=== PATIENT | male | born 1985 | race Two or more races ===

== ENCOUNTER 2018-12-23 11:43 | Observation (INO) | payer OTHER ==
--- NOTE | 2018-12-23 12:51 | EKG REPORT ---
SEVERITY:- BORDERLINE ECG - SINUS RHYTHM NONSPECIFIC ST-T CHANGES- INFERIOR LEADS : Confirmed by: Chuy Clemens MD 23-Dec-2018 12:50:12
[2018-12-23 13:11] LABS: ABSOLUTE EOSINOPHILS # (AUTO) 0.2 10^3/uL (0.0-0.6); ABSOLUTE LYMPHOCYTES (AUTO) 3.1 10^3/uL (0.5-4.7); ABSOLUTE MONOCYTES (AUTO) 0.4 10^3/uL (0.1-1.4); ABSOLUTE NEUT (AUTO) 4.3 10^3/uL (1.7-8.2); BASOPHILS % (AUTO) 0.3 % (0-2); EOSINOPHILS % (AUTO) 2.7 % (0-6); HEMATOCRIT 43.8 % (37.9-51.0); LYMPHOCYTES % (AUTO) 38.6 % (13-45); MEAN CORPUSCULAR VOLUME 80 fl (80-97); MONOCYTES % (AUTO) 5.5 % (3-13); PLATELET COUNT 278 10^3/uL (150-450); RED BLOOD COUNT 5.46 10^6/uL (4.35-5.55); RED CELL DISTRIBUTION WIDTH 14.7 % (11.5-14.0); SEGMENTED NEUTROPHILS % (AUTO) 52.9 % (42-78); TOTAL CELLS COUNTED % (AUTO) 100 %; WHITE BLOOD COUNT 8.1 10^3/uL (4.0-10.5)
[2018-12-23 13:25] LABS: ALANINE AMINOTRANSFERASE 31 U/L (21-72); ALBUMIN 4.2 g/dL (3.5-5.0); ALKALINE PHOSPHATASE 112 U/L (38-126); ANION GAP 13 (5-19); ASPARTATE AMINO TRANSFERASE 26 U/L (17-59); BILIRUBIN,DIRECT 0.4 mg/dL (0.0-0.4); BILIRUBIN,TOTAL 0.8 mg/dL (0.2-1.3); BLOOD UREA NITROGEN 10 mg/dL (7-20); CALCIUM 9.1 mg/dL (8.4-10.2); CARBON DIOXIDE 20 mmol/L (22-30); CHLORIDE 105 mmol/L (98-107); GLUCOSE 128 mg/dL (75-110); POTASSIUM 4.4 mmol/L (3.6-5.0); SODIUM 137.5 mmol/L (137-145); TOTAL PROTEIN 7.8 g/dL (6.3-8.2)
[2018-12-23 13:32] LABS: HEMOGLOBIN 14.7 g/dL (13.5-17.0); MEAN CORPUSCULAR HEMOGLOBIN 26.9 pg (27.0-33.4)
[2018-12-23 13:33] LABS: MEAN CORPUSCULAR HGB CONC 33.6 g/dL (32.0-36.0)
--- NOTE | 2018-12-23 14:29 | RADIOLOGY REPORT (SQ) ---
EXAM DESCRIPTION: CHEST 2 VIEWS COMPLETED DATE/TIME: 12/23/2018 2:13 pm REASON FOR STUDY: chest pain COMPARISON: None. EXAM PARAMETERS: NUMBER OF VIEWS: two views TECHNIQUE: Digital Frontal and Lateral radiographic views of the chest acquired. RADIATION DOSE: NA LIMITATIONS: none FINDINGS: LUNGS AND PLEURA: No opacities, masses or pneumothorax. No pleural effusion. MEDIASTINUM AND HILAR STRUCTURES: No masses or contour abnormalities. HEART AND VASCULAR STRUCTURES: Heart normal size. No evidence for failure. BONES: No acute findings. HARDWARE: None in the chest. OTHER: No other significant finding. IMPRESSION: NO ACUTE RADIOGRAPHIC FINDING IN THE CHEST. TECHNICAL DOCUMENTATION: JOB ID: [id number] [employer]- All Rights Reserved Reading location - IP/workstation name: [email or web address]
--- NOTE | 2018-12-23 14:49 | RADIOLOGY REPORT (SQ) ---
EXAM DESCRIPTION: CTA CHEST COMPLETED DATE/TIME: 12/23/2018 2:35 pm REASON FOR STUDY: chest pain COMPARISON: Two-view chest 12/23/2018 TECHNIQUE: CT scan of the chest performed using helical scanning technique with dynamic intravenous contrast injection. Images reviewed with lung, soft tissue and bone windows. Reconstructed coronal and sagittal MPR images reviewed. Additional 3 dimensional post-processing performed to develop Maximal Intensity Projection images ([place] P). All images stored on PACS. All CT scanners at this facility use dose modulation, iterative reconstruction, and/or weight based d osing when appropriate to reduce radiation dose to as low as reasonably achievable (ALARA). [facility]: Dose Right [facility]: CareDose [facility]: Dose Right [facility]: Teradose 4D [facility]: JoinTV CONTRAST TYPE AND DOSE: contrast/concentration: Isovue mg/ml; Total Contrast Delivered: 144.0 ml; T otal Saline Delivered: 190.0 ml Contrast bolus optimized for the thoracic aorta, suboptimal opacification of the pulmonary arteries. Patient was scanned twice. RENAL FUNCTION: Creatinine 0.6 RADIATION DOSE: CT Rad equipment meets quality standard of care and radiation dose reduction techniq ues were employed. CTDIvol: 1.9 - 15.2 mGy. DLP: 1127 mGy-cm. . LIMITATIONS: Suboptimal contrast bolus. Patient was scanned twice. Manual and automatic technique were utilized. FINDINGS: LUNGS AND PLEURA: No masses, infiltrates, or pneumothorax. No pleural effusions or pleura l calcifications. AORTA AND GREAT VESSELS: No aneurysm. No thoracic aortic dissection. Single surgical clip along the ductus arteriosus region HEART: No pericardial effusion. No significant coronary artery calcifications. PULMONARY ARTERIES: No emboli visualized in the main pulmonary arteries or the proximal segmental bra nches. HILAR AND MEDIASTINAL STRUCTURES: No identified masses or abnormal nodes. Minimal thymic tissue in t he anterior mediastinum on axial images 34-40 of doubtful clinical significance. HARDWARE: None in the chest. UPPER ABDOMEN: Fatty liver THYROID AND OTHER SOFT TISSUES: No masses. No adenopathy. BONES: Old left thoracotomy defect along the posterior 5th rib. . 3D MIPS: Confirm above findings. OTHER: No other significant finding. IMPRESSION: Limited study, no gross evidence of acute pulmonary emboli. Ductus arteriosus clip in the mediastinum with old left posterior 5th rib defect from surger y COMMENT: Quality ID # [id number]: Final reports with documentation of one or more dose reduction techniques (e.g., Automated exposure control, adjustment of the mA and/or kV according to patient size, use of iterative reconstruction technique) TECHNICAL DOCUMENTATION: JOB ID: [id number] [employer]- All Rights Reserved Reading location - IP/workstation name: [email or web address]
[2018-12-23 15:05] LABS: CREATINE KINASE MB 0.28 ng/mL (<4.55)
[2018-12-23 15:06] LABS: TROPONIN I < 0.012 ng/mL
--- NOTE | 2018-12-23 15:30 | RADIOLOGY REPORT (SQ) ---
EXAM DESCRIPTION: MRI CERVICAL SPINE WITHOUT COMPLETED DATE/TIME: 12/23/2018 3:18 pm REASON FOR STUDY: cervical radiculopathy COMPARISON: None. TECHNIQUE: Sagittal and Axial imaging includes T1, T2, STIR and gradient echo sequences. LIMITATIONS: Mild motion artifact FINDINGS: ALIGNMENT: Normal. VERTEBRAE: Intact. BONE MARROW: Normal. No marrow replacement or reactive changes. DISCS: Diffuse decreased T2 weighted intervertebral disc signal throughout the cervical spine HARDWARE: None in the spine. CORD AND BASE OF BRAIN: Normal in size and signal intensity. SOFT TISSUES: No soft tissue masses. C1-C2: No significant spinal stenosis. C2-C3: No significant spinal stenosis or exit foraminal stenosis. C3-C4: No significant spinal stenosis or exit foraminal stenosis. C4-C5: No significant spinal stenosis or exit foraminal stenosis. C5-C6: Minimal posterior disc bulging. No significant spinal stenosis or exit foraminal stenosis. C6-C7: Small central posterior disc bulge partially effaces the ventral thecal sac and abuts the vent ral cord without cord flattening or abnormal intrinsic cord signal. No significant central or forami nal stenosis. C7-T1: No significant spinal stenosis or exit foraminal stenosis. UPPER THORACIC: Incompletely imaged. No significant spinal stenosis or exit foraminal stenosis. OTHER: No other significant finding. IMPRESSION: No significant central or foraminal stenosis TECHNICAL DOCUMENTATION: JOB ID: [id number]- All Rights Reserved Reading location - IP/workstation name: [email or web address]
[2018-12-23] MEDS ORDERED: ALBUTEROL SULFATE HFA (90 MCG/PUFF) 200 PUFF/8.5 GM MDI IH PRN (17:48)
[2018-12-23] MEDS ORDERED: TRAMADOL HCL 50 MG TABLET PO PRN (17:48)
[2018-12-23] MEDS ORDERED: (PENDING PHARMACY ID) (Empagliflozin [Jardiance] 25 MG) PO SCH (18:00)
[2018-12-23] MEDS ORDERED: (PENDING PHARMACY ID) (Fluticasone/Salmeterol 1 PUFF) IH SCH (18:00)
--- NOTE | 2018-12-23 18:23 | PDOC H&P ---
History of Present Illness Admission Date/PCP: 12/23/18 11:43 History of Present Illness: KEYONNA HINOJOSA is a 33 year old male, he has type II diabetes mellitus, hyperlipidemia, he came to the office for evaluation of chest pain, he said the chest pain involved both the right and the left side, he described the chest pain as pressure-like. He also describes pain in his neck with radicular symptoms, in the office a 12-lead EKG was done, it was sinus rhythm, there was nonspecific T wave changes in inferior leads, because of his history of diabetes mellitus type 2 and also hypertriglyceridemia with abnormal EKG I felt patient needed to be admitted for observation to rule out ischemic heart disease. CTA chest was done, it was negative for acute pulmonary embolism, MRI of the neck was done because of cervical radiculopathy,it demonstrated small central posterior disc bulge partially effaces the ventral thecal sac and abuts the ventral cord without cord flattening or abnormal intrinsic cord signal. No significant central or foraminal stenosis was found Past Medical History Cardiac Medical History: Reports: Hypertension Endocrine Medical History: Reports: Diabetes Mellitus Type 2 Musculoskeltal Medical History: Reports: Arthritis Social History Smoking Status: Never Smoker Drugs: None - Advance Directive Resuscitation Status: Full Code Family History Parental Family History Reviewed: Yes Children Family History Reviewed: Yes Sibling(s) Family History Reviewed.: Yes Medication/Allergy Home Medications: Albuterol Sulfate [Proair HFA Inhalation Aerosol 8.5 gm MDI] 2 puff IH Q4HP PRN 12/23/18 Atorvastatin Calcium [Lipitor 40 mg Tablet] 40 mg PO QHS 12/23/18 Carboxymethylcellulose Sodium [Refresh Plus 0.5% Oph Soln 0.4 ml Droperette] 1 drop OU TID 12/23/18 Cetirizine HCl [Zyrtec 10 mg Tablet] 10 mg PO DAILY 12/23/18 Empagliflozin [Jardiance] 25 mg PO DAILY 12/23/18 Fluticasone/Salmeterol [Advair 500-50 Diskus 14 Dose/Diskus] 1 puff IH DAILY 12/23/18 Gabapentin [Neurontin 300 mg Capsule] 300 mg PO Q8 12/23/18 Lisinopril [Zestril] 10 mg PO DAILY 12/23/18 Metformin HCl [Glucophage XR 500 mg Tablet] 500 mg PO BID 12/23/18 Olopatadine HCl [Patanol 0.1% Oph Soln 5 ml] 1 drop OU DAILY 12/23/18 [place]-3 Acid Ethyl Esters [Lovaza 1 gm Capsule] 1 cap PO DAILY 12/23/18 Sitagliptin Phosphate [Januvia] 100 mg PO DAILY 12/23/18 Tramadol HCl [Ultram 50 mg Tablet] 50 mg PO Q6HP PRN 12/23/18 Allergies/Adverse Reactions: grass pollen Allergy (Mild, Verified 12/23/18 19:33) Stuffy Nose house dust Allergy (Mild, Verified 12/23/18 19:33) Stuffy Nose tree and shrub pollen Allergy (Mild, Verified 12/23/18 19:33) Stuffy Nose Review of Systems Constitutional: ABSENT: chills, fever(s), headache(s), weight gain, weight loss Eyes: ABSENT: visual disturbances Ears: ABSENT: hearing changes Cardiovascular: PRESENT: chest pain. ABSENT: dyspnea on exertion, edema, orthropnea, palpitations Respiratory: ABSENT: cough, hemoptysis Gastrointestinal: ABSENT: abdominal pain, constipation, diarrhea, hematemesis, hematochezia, nausea, vomiting Genitourinary: ABSENT: dysuria, hematuria Musculoskeletal: ABSENT: joint swelling Integumentary: ABSENT: rash, wounds Neurological: ABSENT: abnormal gait, abnormal speech, confusion, dizziness, f ocal weakness, syncope Psychiatric: ABSENT: anxiety, depression, homidical ideation, suicidal ideation Endocrine: ABSENT: cold intolerance, heat intolerance, menstrual abnormalities, polydipsia, polyuria Hematologic/Lymphatic: ABSENT: easy bleeding, easy bruising, lymphadenopathy Physical Exam Vital Signs: Temp Pulse Resp BP Pulse Ox 98.1 F 101 H 16 117/83 94 12/23/18 16:00 12/23/18 16:00 12/23/18 16:00 12/23/18 16:00 12/23/18 16:00 Intake & Output 12/22/18 12/23/18 12/24/18 06:59 06:59 06:59 Intake Total 400 Balance 400 General appearance: PRESENT: no acute distress, well-developed, well-nourished Head exam: PRESENT: atraumatic, normocephalic Eye exam: PRESENT: conjunctiva pink, EOMI, PERRLA Ear exam: PRESENT: normal external ear exam Mouth exam: PRESENT: moist, tongue midline Neck exam: PRESENT: full ROM Respiratory exam: PRESENT: clear to auscultation vik Cardiovascular exam: PRESENT: RRR, +S1, +S2 Pulses: PRESENT: normal dorsalis pedis pul, +2 pedal pulses bilateral Vascular exam: PRESENT: normal capillary refill GI/Abdominal exam: PRESENT: normal bowel sounds, soft Rectal exam: PRESENT: deferred Neurological exam: PRESENT: alert, awake, oriented to person, oriented to place, oriented to time, oriented to situation, CN II-XII grossly intact Psychiatric exam: PRESENT: appropriate affect, normal mood Skin exam: PRESENT: dry, intact, warm. ABSENT: cyanosis, rash Results Laboratory Results: 12/23/18 12:51 12/23/18 12:51 12/23/18 12/23/18 12:51 12:51 WBC 8.1 RBC 5.46 Hgb 14.7 Hct 43.8 MCV 80 MCH 26.9 L MCHC 33.6 RDW 14.7 H Plt Count 278 Seg Neutrophils % 52.9 Lymphocytes % 38.6 Monocytes % 5.5 Eosinophils % 2.7 Basophils % 0.3 Absolute Neutrophils 4.3 Absolute Lymphocytes 3.1 Absolute Monocytes 0.4 Absolute Eosinophils 0.2 Absolute Basophils 0.0 Sodium 137.5 Potassium 4.4 Chloride 105 Carbon Dioxide 20 L Anion Gap 13 BUN 10 Creatinine 0.58 Est GFR ( Amer) > 60 Est GFR (Non-Af Amer) > 60 Glucose 128 H Calcium 9.1 Total Bilirubin 0.8 AST 26 ALT 31 Alkaline Phosphatase 112 Total Protein 7.8 Albumin 4.2 12/23/18 12/23/18 12:51 12:51 Creatine Kinase 64 CK-MB (CK-2) 0.28 Troponin I < 0.012 Impressions: Cervical Spine MRI 12/23/18 00:00 IMPRESSION: No significant central or foraminal stenosis Chest X-Ray 12/23/18 00:00 IMPRESSION: NO ACUTE RADIOGRAPHIC FINDING IN THE CHEST. Chest/Abdomen CTA 12/23/18 00:00 IMPRESSION: Limited study, no gross evidence of acute pulmonary emboli. Ductus arteriosus clip in the mediastinum with old left posterior 5th rib defect from surgery Assessment & Plan - Diagnosis (1) Chest pain Qualifiers: Chest pain type: other chest pain Qualified Code(s): R07.89 - Other chest pain; R07.8 - Other chest pain Is this a current diagnosis for this admission?: Yes Plan: The chest pain is atypical in character but because he has multiple risk factors for ischemic heart disease, he was admitted for observation and evaluation to rule out ischemic heart disease (2) T2DM (type 2 diabetes mellitus) Qualifiers: Diabetes mellitus intermediate insulin use: without intermediate use Diabetes mellitus complication status: without complication Qualified Code(s): E11.9 - Type 2 diabetes mellitus without complications Is this a current diagnosis for this admission?: Yes
--- NOTE | 2018-12-23 19:47 | XCELERA REPORT ---
[address] [address] Transthoracic Echocardiogram Report Name: KEYONNA HINOJOSA Age: 33 yrs Gender: Male : 1985 Patient Status: Inpatient Patient Location: [facility]^A Study Date: 12/23/2018 01:16 PM Height: 71 in Weight: 246 lb BSA: 2.3 m2 Reason For Study: chest pain Ordering Physician: MARK WILLETT Performed By: Karla Madden Interpretation Summary Study quality fair with some suboptimal images. Lack of contrast opacification limits evaluation for intracardiac thrombus/mass. LVEF appears normal at 60-65%. The right ventricle is normal in size and function. The transmitral spectral Doppler flow pattern is normal for age A bicuspid aortic valve cannot be excluded. Doppler data provided does not suggest any significant stenosis. There is no pericardial effusion. The inferior vena cava was not well visualized The aortic root is normal size. MMode/2D Measurements & Calculations RVDd: 3.6 cm LVIDd: 5.0 cm FS: 40.1 % Ao root diam: IVSd: 0.82 cm LVIDs: 3.0 cm EDV(Teich): 2.8 cm LVPWd: 1.0 cm 120.2 ml Ao root area: ESV(Teich): 35.5 ml 5.9 cm2 EF(Teich): 70.5 % EDV(MOD-sp4): SV(MOD-sp4): 106.6 ml 66.1 ml ESV(MOD-sp4): 40.6 ml EF(MOD-sp4): 62.0 % Doppler Measurements & Calculations MV E max tea: MV dec slope: Ao V2 max: LV V1 max P.5 cm/sec 150.4 cm/sec 2.6 mmHg MV A max tea: 361.5 cm/sec2 Ao max PG: LV V1 max: 64.7 cm/sec MV dec time: 0.18 sec9.1 mmHg 81.2 cm/sec MV E/A: 1.0 PA V2 max: TR max tea: 93.7 cm/sec 197.3 cm/sec PA max P.5 mmHg TR max P.6 mmHg Left Ventricle The left ventricular ejection fraction is normal. LV EF is 60-65%. The transmitral spectral Doppler flow pattern is normal for age. The left ventricular wall motion is normal. Right Ventricle A moderator band is seen in the right ventricle. The right ventricle is normal in size and function. Atria The right atrium is normal in size. The left atrial size is normal. Mitral Valve The mitral valve is normal in structure and function. Aortic Valve A bicuspid aortic valve cannot be excluded. There is a peak gradient of 9.05 mm of Hg. Tricuspid Valve The tricuspid valve is not well visualized secondary to technical limitations. RVSP could not be estimated. Pulmonic Valve The pulmonic valve is not well visualized. There is a trace or physiologic amount of pulmonic regurgitation. Great Vessels The aortic root is normal size. The inferior vena cava was not well visualized. Effusions There is no pericardial effusion. : MARK WILLETT > Enrico King
[2018-12-23 20:28] LABS: CREATINE KINASE MB 0.25 ng/mL (<4.55)
[2018-12-23 20:32] LABS: TROPONIN I < 0.012 ng/mL
[2018-12-23] MEDS: SITAGLIPTIN PHOSPHATE 50 MG TABLET PO SCH (21:04)
[2018-12-23] MEDS: CETIRIZINE 10 MG TABLET PO SCH (21:07)
[2018-12-23] MEDS: LISINOPRIL 10 MG TABLET PO SCH (21:07)
[2018-12-23] MEDS: OMEGA-3 ACID ETHYL ESTERS 1 GM CAPSULE PO SCH (21:07)
[2018-12-23] MEDS: OLOPATADINE HCL 0.1% OPH SOLN 5 ML OU SCH (21:08)
[2018-12-23] MEDS: CARBOXYMETHYLCELLULOSE SOD 0.5% 0.4 ML DROPERETTE OU SCH (21:09)
[2018-12-23] MEDS: GABAPENTIN 300 MG CAPSULE PO SCH (21:13)
[2018-12-23 21:32] LABS: APPEARANCE,URINE CLEAR; BILIRUBIN,URINE NEGATIVE (NEGATIVE); COLOR,URINE STRAW; GLUCOSE, URINE >=500 mg/dL (NEGATIVE); KETONES,URINE NEGATIVE (NEGATIVE); LEUKOCYTE ESTERASE,URINE NEGATIVE (NEGATIVE); NITRITE,URINE NEGATIVE (NEGATIVE); PROTEIN,URINE NEGATIVE (NEGATIVE); URINE SPECIFIC GRAVITY 1.031; UROBILINOGEN,URINE NEGATIVE mg/dL (<2.0)
[2018-12-23] MEDS ORDERED: ATORVASTATIN CALCIUM 40 MG TABLET PO SCH (22:00)
[2018-12-24 03:05] LABS: CREATINE KINASE MB 0.27 ng/mL (<4.55)
[2018-12-24 03:08] LABS: TROPONIN I < 0.012 ng/mL
[2018-12-24] MEDS: GABAPENTIN 300 MG CAPSULE PO SCH ×2 (05:56→14:44)
[2018-12-24] MEDS: CARBOXYMETHYLCELLULOSE SOD 0.5% 0.4 ML DROPERETTE OU SCH ×2 (05:56→14:44)
[2018-12-24] MEDS: SITAGLIPTIN PHOSPHATE 50 MG TABLET PO SCH (09:30)
[2018-12-24] MEDS: CETIRIZINE 10 MG TABLET PO SCH (09:31)
[2018-12-24] MEDS: OLOPATADINE HCL 0.1% OPH SOLN 5 ML OU SCH (09:31)
[2018-12-24] MEDS: LISINOPRIL 10 MG TABLET PO SCH (09:31)
[2018-12-24] MEDS: OMEGA-3 ACID ETHYL ESTERS 1 GM CAPSULE PO SCH (09:31)
[2018-12-24] MEDS ORDERED: FLUTICASONE/VILANTEROL 200-25 MCG/DOSE IH SCH (10:00)
--- NOTE | 2018-12-24 13:41 | DRAGON STRESS TEST REPORT ---
Date of procedure 12/24/2018 Patient name Rush Franco Date of 1985 Age [age] years old Sex male Ordering provider Dr. Hardy Mendez Reason for study chest pain Imaging protocol rest Lexiscan nuclear MIBI SPECT study Rest images of the heart were obtained 60 minutes after injection of Cardiolite 13.95 mCi. Under the supervision of Enrico King MD patient was given Lexiscan 0.4 mg IV at rest followed by Cardiolite 43.9 mCi. Patient's resting heart rate was 82 bpm and increased to maximum of 116 bpm. Patient is resting blood pressure was 115/78 and changed to 137/73 mmHg after Lexiscan injection. Patient's resting EKG showed sinus rhythm and after Lexiscan injection patient remained in sinus rhythm and then sinus tachycardia with no EKG changes specific for ischemia noted. Patient denied any chest pain or shortness of breath after Lexiscan injection. Stress images of the heart were obtained 60 minutes after injection of Cardiolite stress dose. Raw Rest and stress images were reviewed and showed significant uptake and mild motion. Attenuation correction not available to use on this camera per respiratory support technician which limits our ability to correct for attenuation artifacts. Myocardial perfusion imaging shows perfusion defects in the inferior, apical and anterior LV wall segment which are noted on both rest and stress images and appear worse on the rest images likely suggestive of imaging artifacts but mild ischemia cannot be ruled out. Computer-assisted tomographic analysis shows normal LV wall motion and systolic contractility poststress. LVEF was normal at 60% post stress. TID ratio was 1.04. Impression 1. No Lexiscan induced EKG changes specific for ischemia noted. 2. Myocardial perfusion imaging limited by lack of attenuation correction and shows predominantly fixed perfusion defects in the LV apex, inferior and anterior LV wall segments. Mild ischemia cannot be ruled out. 3. Normal LVEF at 60% post stress. 4. Normal LV wall motion and systolic contractility poststress. Electronically signed by Enrico King MD [facility]
[2018-12-24] MEDS ORDERED: REGADENOSON INJ 0.4 MG/5 ML DISP.SYRIN IV ONE (13:55)
[2018-12-24 15:59] VITALS: BP 116/59
--- NOTE | 2018-12-24 17:10 | PDOC DISCHARGE SUMMARY ---
General - Admit/Disc Date/PCP Admission Date/Primary Care Provider: 12/23/18 11:43 Discharge Date: 12/24/18 - Discharge Diagnosis (1) Chest pain Is this a current diagnosis for this admission?: Yes (2) T2DM (type 2 diabetes mellitus) Is this a current diagnosis for this admission?: Yes (3) Cervical radiculopathy Is this a current diagnosis for this admission?: Yes - Additional Information Resuscitation Status: Full Code Home Medications: Albuterol Sulfate [Proair HFA Inhalation Aerosol 8.5 gm MDI] 2 puff IH Q4HP PRN 12/23/18 Atorvastatin Calcium [Lipitor 40 mg Tablet] 40 mg PO QHS 12/23/18 Carboxymethylcellulose Sodium [Refresh Plus 0.5% Oph Soln 0.4 ml Droperette] 1 drop OU TID 12/23/18 Cetirizine HCl [Zyrtec 10 mg Tablet] 10 mg PO DAILY 12/23/18 Empagliflozin [Jardiance] 25 mg PO DAILY 12/23/18 Fluticasone/Salmeterol [Advair 500-50 Diskus 14 Dose/Diskus] 1 puff IH DAILY 12/23/18 Gabapentin [Neurontin 300 mg Capsule] 300 mg PO Q8 12/23/18 Lisinopril [Zestril] 10 mg PO DAILY 12/23/18 Metformin HCl [Glucophage XR 500 mg Tablet] 500 mg PO BID 12/23/18 Olopatadine HCl [Patanol 0.1% Oph Soln 5 ml] 1 drop OU DAILY 12/23/18 [place]-3 Acid Ethyl Esters [Lovaza 1 gm Capsule] 1 cap PO DAILY 12/23/18 Sitagliptin Phosphate [Januvia] 100 mg PO DAILY 12/23/18 Tramadol HCl [Ultram 50 mg Tablet] 50 mg PO Q6HP PRN 12/23/18 History of Present Illness History of Present Illness: KEYONNA HINOJOSA is a 33 year old male, he has type II diabetes mellitus, hyperlipidemia, he came to the office for evaluation of chest pain, he said the chest pain involved both the right and the left side, he described the chest pain as pressure-like. He also describes pain in his neck with radicular symptoms, in the office a 12-lead EKG was done, it was sinus rhythm, there was nonspecific T wave changes in inferior leads, because of his history of diabetes mellitus type 2 and also hypertriglyceridemia with abnormal EKG I felt patient needed to be admitted for observation to rule out ischemic heart disease. CTA chest was done, it was negative for acute pulmonary embolism, MRI of the neck was done because of cervical radiculopathy,it demonstrated small central posterior disc bulge partially effaces the ventral thecal sac and abuts the ventral cord without cord flattening or abnormal intrinsic cord signal. No significant central or foraminal stenosis was found Hospital Course Hospital Course: Patient was admitted for evaluation and management of chest pain, he had Cardiolite Lexiscan stress test done today there was no Lexiscan induced EKG changes specific for ischemia. Normal LVEF at 60% poststress. Essentially a negative stress test. The chest pain is probably from cervical radiculopathy. 3 sets of cardiac enzymes were negative for acute myocardial infarction Physical Exam Vital Signs: Temp Pulse Resp BP Pulse Ox 99.1 F 103 H 16 116/59 L 95 12/24/18 15:42 12/24/18 15:42 12/24/18 15:42 12/24/18 15:42 12/24/18 15:42 Intake & Output 12/23/18 12/24/18 12/25/18 06:59 06:59 06:59 Intake Total 400 975 Output Total 225 Balance 175 975 Weight 102.4 kg General appearance: PRESENT: no acute distress, well-developed, well-nourished Head exam: PRESENT: atraumatic, normocephalic Eye exam: PRESENT: conjunctiva pink, EOMI, PERRLA. ABSENT: scleral icterus Ear exam: PRESENT: normal external ear exam Mouth exam: PRESENT: moist, tongue midline Neck exam: PRESENT: full ROM Respiratory exam: PRESENT: clear to auscultation vik Cardiovascular exam: PRESENT: RRR, +S1, +S2 Vascular exam: PRESENT: normal capillary refill GI/Abdominal exam: PRESENT: normal bowel sounds, soft Rectal exam: PRESENT: deferred Neurological exam: PRESENT: alert, awake, oriented to person, oriented to place, oriented to time, oriented to situation, CN II-XII grossly intact Psychiatric exam: PRESENT: appropriate affect, normal mood Skin exam: PRESENT: dry, intact, warm Results Laboratory Results: 12/23/18 12:51 12/23/18 12:51 12/23/18 20:55 Urine Color STRAW Urine Appearance CLEAR Urine pH 5.0 Ur Specific [place] 1.031 Urine Protein NEGATIVE Urine Glucose (UA) >=500 H Urine Ketones NEGATIVE Urine Blood SMALL H Urine Nitrite NEGATIVE Ur Leukocyte Esterase NEGATIVE Urine WBC (Auto) 0 Urine RBC (Auto) 0 12/23/18 12/23/18 12/23/18 12:51 12:51 19:37 Creatine Kinase 64 70 CK-MB (CK-2) 0.28 Troponin I < 0.012 12/23/18 12/24/18 12/24/18 19:37 02:12 02:12 Creatine Kinase 69 CK-MB (CK-2) 0.25 0.27 Troponin I < 0.012 < 0.012 Impressions: Cervical Spine MRI 12/23/18 00:00 IMPRESSION: No significant central or foraminal stenosis Chest X-Ray 12/23/18 00:00 IMPRESSION: NO ACUTE RADIOGRAPHIC FINDING IN THE CHEST. Chest/Abdomen CTA 12/23/18 00:00 IMPRESSION: Limited study, no gross evidence of acute pulmonary emboli. Ductus arteriosus clip in the mediastinum with old left posterior 5th rib defect from surgery Qualifiers - * PATIENT BEING DISCHARGED WITH ANY OF THE FOLLOWING DIAGNOSIS: No VTE patient discharged on overlapping Therapy?: No Reason(s) for not prescribing Overlap Therapy:: Not indicated Stroke Pt being discharged on Anti-thrombolytic therapy?: No Reason(s) for not prescribing Anti-thrombolytic therapy:: Not indicated Stroke Pt being discharged on Anti-coagulation therapy?: No Reason(s) for not prescribing Anti-coagulation therapy:: Not indicated Stroke Pt being discharged on Statins?: No Reason(s) for not prescribing Statins therapy:: Not indicated ID Pt being discharged on Aspirin therapy?: No Reason(s) for not prescribing Aspirin therapy:: Not indicated ID Pt being discharged on Statins?: No Reason(s) for not prescribing Statin therapy:: Not indicated ID Pt discharged ACEI/ARBS?: No Reason(s) for not prescribing ACEI/ARBS:: Not indicated Acute Heart Failure - Is this a Heart Failure Patient?: No e) For LVEF <35%, discharged on Aldosterone antagonist?: Yes Follow-up Appointment scheduled within 7 days?: Yes
== END 2018-12-24 17:59 | disposition home or self-care (01) ==
LOC: 3W 11:43
PROVIDERS: ADMIT Internal Medicine; ATTEND Internal Medicine
DX: M54.12 Radiculopathy, cervical region (principal); E11.8 Type 2 diabetes mellitus with unspecified complications; E78.5 Hyperlipidemia, unspecified; E78.1 Pure hyperglyceridemia; R94.31 Abnormal electrocardiogram [ECG] [EKG]; R07.89 Other chest pain; Z79.4 Long term (current) use of insulin
CPT/HCPCS: 36415 ×2; 82553 ×2; 82550 ×2; 85025; 80076; 80048; 81001; 84484 ×2; 93306; 93017; 72141; 71046; 78452; 71275; 93005; 93010; G0378 ×2; G0379; A9500; J2785; J3490 ×4; Q9969

== ENCOUNTER → 2019-03-21 | Outpatient (CLI) | payer OTHER ==
--- NOTE | 2019-03-21 10:27 | RADIOLOGY REPORT (SQ) ---
EXAM DESCRIPTION: CT ABDOMEN COMBO COMPLETED DATE/TIME: 03/21/2019 9:51 am REASON FOR STUDY: EPIGASTRIC PAIN,IDIOPATHIC ACUTE PANCREATITIS WITH R10.13 EPIGASTRIC PAIN K85.00 IDIOPATHIC ACUTE PANCREATITIS WITHOUT NECROSIS OR INF COMPARISON: CT chest dated 12/23/2018 TECHNIQUE: CT scan of the abdomen performed with and without intravenous contrast, and with oral con trast. Contrasted imaging performed using helical scanning technique with dynamic intravenous contras t injection. Images reviewed with lung, soft tissue, and bone windows. Reconstructed coronal and sagi ttal MPR images reviewed. Delayed images for evaluation of the urinary system also acquired and evalu ated. All images stored on PACS. All CT scanners at this facility use dose modulation, iterative reconstruction, and/or weight based d osing when appropriate to reduce radiation dose to as low as reasonably achievable (ALARA). [facility]: Dose Right [facility]: CareDose [facility]: Dose Right [facility]: Teradose 4D [facility]: [employer] CONTRAST TYPE AND DOSE: contrast/concentration: Isovue 350.00 mg/ml; Total Contrast Delivered: 63.0 ml; Total Saline Delivered: 80.0 ml RENAL FUNCTION: Creatinine 0.7 RADIATION DOSE: CT Rad equipment meets quality standard of care and radiation dose reduction techniq ues were employed. CTDIvol: 16.9 - 56.3 mGy. DLP: 3013 mGy-cm.. LIMITATIONS: None. FINDINGS: NONCONTRASTED IMAGING: No significant renal or bladder calcifications. No other significan t organ calcifications. POSTCONTRASTED IMAGING: LOWER CHEST: No significant findings. No nodules or infiltrates. LIVER: Normal size. No masses. No dilated ducts. SPLEEN: Normal size. No focal lesions. PANCREAS: There are numerous peripancreatic fluid collections most consistent with pseudocyst. There are 2 large collections which may or may not be connected. The more superior collection measures 11 .5 x 9.6 x 6.9 cm. The more inferior collection which is septated measures 13.5 x 9.6 x 13.3 cm. Th ere is stranding in the lateral gutter. GALLBLADDER: No identified stones by CT criteria. No inflammatory changes to suggest cholecystitis. ADRENAL GLANDS: No significant masses or asymmetry. RIGHT KIDNEY AND URETER: No solid masses. No significant calcifications. No hydronephrosis or hyd roureter. LEFT KIDNEY AND URETER: No solid masses. No significant calcifications. No hydronephrosis or hydr oureter. AORTA AND VESSELS: No aneurysm. No dissection. Renal arteries, SMA, celiac without stenosis. RETROPERITONEUM: No retroperitoneal adenopathy, hemorrhage or masses. BOWEL AND PERITONEAL CAVITY: No masses or inflammatory changes. No free fluid or peritoneal masses. APPENDIX: Not visualized. ABDOMINAL WALL: No masses. No hernias. BONES: No significant or acute findings. OTHER: No other significant finding. IMPRESSION: Complex peripancreatic fluid collections most likely representing septated pseudocyst. TECHNICAL DOCUMENTATION: JOB ID: [id number] Quality ID # [id number]: Final reports with documentation of one or more dose reduction techniques (e.g., Au tomated exposure control, adjustment of the mA and/or kV according to patient size, use of iterative reconstruction technique) 2010 [employer]- All Rights Reserved Reading location - IP/workstation name: [email or web address]
== END ==
LOC: RAD 09:21
PROVIDERS: ATTEND Internal Medicine Gastroenterology
DX: K85.00 Idiopathic acute pancreatitis without necrosis or infection (principal); R10.13 Epigastric pain
CPT/HCPCS: 74170; 82565

== ENCOUNTER → 2019-06-14 | Outpatient (CLI) | payer OTHER ==
--- NOTE | 2019-06-14 10:40 | RADIOLOGY REPORT (SQ) ---
EXAM DESCRIPTION: U/S ABDOMEN COMPLETE W/O DOP COMPLETED DATE/TIME: 06/14/2019 10:09 am REASON FOR STUDY: K85.00 IDIOPATHIC ACUTE PANCREATITIS WITHOUT NECROSIS OR INFECTION, K86.2 C K85.00 IDIOPATHIC ACUTE PANCREATITIS WITHOUT NECROSIS OR INF K86.2 CYST OF PANCREAS COMPARISON: CT abdomen pelvis dated 03/21/2019 TECHNIQUE: Dynamic and static grayscale images acquired of the abdomen and recorded on PACS. Additio nal selected color Doppler and spectral images recorded. Note: Study does not meet criteria for complete doppler/duplex scan LIMITATIONS: None. FINDINGS: PANCREAS: The pancreas is obscured by overlying bowel gas. In the mid abdomen there is a complex 10.3 x 10.7 x 12.1 cm cystic lesion with septations. This corresponds to the pseudocysts robert cribed on prior CT. Comparing CT to ultrasound the lesion appears smaller but try correlation with r epeat CT is recommended. LIVER: There is fatty infiltration of liver. There is hepatomegaly. The liver measures over 21 cm i n cranial caudal dimensions. LIVER VASCULATURE: Normal directional flow of the main portal vein and hepatic veins. GALLBLADDER: No stones. Normal wall thickness. No pericholecystic fluid. ULTRASOUND-DETECTED MARLOW'S SIGN: Negative. INTRAHEPATIC DUCTS AND COMMON DUCT: CBD and intrahepatic ducts normal caliber. No filling defects. INFERIOR VENA CAVA: Normal flow. AORTA: No aneurysm. RIGHT KIDNEY: Normal size. Normal echogenicity. No solid or suspicious masses. No hydronephros is. No calcifications. LEFT KIDNEY: Normal size. Normal echogenicity. No solid or suspicious masses. No hydronephrosi s. No calcifications. SPLEEN: Spleen is enlarged measured at 15 cm cranial caudally. No focal masses. PERITONEAL AND PLEURAL SPACES: No ascites or effusions. OTHER: No other significant finding. IMPRESSION: Complex cystic mass in mid abdomen corresponding to pseudocyst demonstrated on prior CT. On ultrasound lesion measures 10.3 x 10.7 x 12.1 cm. 2 separate lesions could not be identified. Ultrasound was suggest the collection is decreasing in size although direct correlation with repeat C T is recommended. TECHNICAL DOCUMENTATION: JOB ID: [id number] [employer]- All Rights Reserved Reading location - IP/workstation name: [email or web address]
== END ==
LOC: RAD 08:57
PROVIDERS: ATTEND Internal Medicine Gastroenterology
DX: K85.00 Idiopathic acute pancreatitis without necrosis or infection (principal); K86.2 Cyst of pancreas
CPT/HCPCS: 76700

== ENCOUNTER → 2019-08-24 | Outpatient (CLI) | payer OTHER ==
--- NOTE | 2019-08-24 12:38 | RADIOLOGY REPORT (SQ) ---
EXAM DESCRIPTION: L SPINE WHOLE COMPLETED DATE/TIME: 08/24/2019 8:55 am REASON FOR STUDY: LOW BACK PAIN R10.13 EPIGASTRIC PAIN K86.2 CYST OF PANCREAS COMPARISON: None. NUMBER OF VIEWS: Five views including obliques. TECHNIQUE: AP, lateral, oblique, and sacral radiographic images acquired of the lumbar spine. LIMITATIONS: None. FINDINGS: MINERALIZATION: Normal. SEGMENTATION: Normal. No transitional anatomy. ALIGNMENT: Normal. VERTEBRAE: Maintained height. No fracture or worrisome bone lesion. DISCS: Preserved height. No significant osteophytes or end plate irregularity. POSTERIOR ELEMENTS: Pedicles and facets are intact. No pars defect or posterior arch defects. HARDWARE: None in the spine. PARASPINAL SOFT TISSUES: Normal. PELVIS: Intact as visualized. No fractures or worrisome bone lesions. SI joints intact. OTHER: No other significant finding. IMPRESSION: NORMAL 5 VIEW LUMBAR SPINE. TECHNICAL DOCUMENTATION: JOB ID: [id number] 2010 [employer]- All Rights Reserved Reading location - IP/workstation name: [email or web address]
== END ==
LOC: RAD 08:12
PROVIDERS: ATTEND Internal Medicine
DX: M54.5 Low back pain (principal)
CPT/HCPCS: 72110

== ENCOUNTER → 2019-09-01 | Outpatient (CLI) | payer OTHER ==
--- NOTE | 2019-09-01 11:08 | RADIOLOGY REPORT (SQ) ---
EXAM DESCRIPTION: CT ABDOMEN WITH IV ORAL CONT COMPLETED DATE/TIME: 09/01/2019 9:35 am REASON FOR STUDY: CYST OF PANCREAS R10.13 EPIGASTRIC PAIN K86.2 CYST OF PANCREAS COMPARISON: 03/21/2019 TECHNIQUE: CT scan of the abdomen performed with intravenous and with oral contrast using helical sc anning technique with dynamic intravenous contrast injection. Images reviewed with lung, soft tissue, and bone windows. Reconstructed coronal and sagittal MPR images reviewed. Delayed images for evaluat ion of the urinary system also acquired and evaluated. All images stored on PACS. All CT scanners at this facility use dose modulation, iterative reconstruc tion, and/or weight based dosing when appropriate to reduce radiation dose to as low as reasonably ac hievable (ALARA). [facility]: Dose Right [facility]: CareDose [facility]: Dose Right [facility]: Teradose 4D [facility]: [employer] CONTRAST TYPE AND DOSE: contrast/concentration: Isovue 350.00 mg/ml; Total Contrast Delivered: 96.0 ml; Total Saline Delivered: 72.0 ml RENAL FUNCTION: GFR > 60. RADIATION DOSE: CT Rad equipment meets quality standard of care and radiation dose reduction techniq ues were employed. CTDIvol: 15.4 - 15.7 mGy. DLP: 1124 mGy-cm. . LIMITATIONS: None. FINDINGS: LOWER CHEST: No significant findings. No nodules or infiltrates. LIVER: Normal size. No masses. No dilated ducts. SPLEEN: Normal size. No focal lesions. PANCREAS: Complex cystic lesion body and tail measuring 12.3 x 12.0 cm not significantly changed. No pseudoaneurysm. GALLBLADDER: No identified stones by CT criteria. No inflammatory changes to suggest cholecystitis. ADRENAL GLANDS: No significant masses or asymmetry. RIGHT KIDNEY AND URETER: No solid masses. No significant calcifications. No hydronephrosis or hyd roureter. LEFT KIDNEY AND URETER: No solid masses. No significant calcifications. No hydronephrosis or hydr oureter. AORTA AND VESSELS: No aneurysm. No dissection. Renal arteries, SMA, celiac without stenosis. RETROPERITONEUM: No retroperitoneal adenopathy, hemorrhage or masses. BOWEL AND PERITONEAL CAVITY: No masses or inflammatory changes. No free fluid or peritoneal masses. APPENDIX: Not visualized. ABDOMINAL WALL: No masses. No hernias. BONES: No significant or acute findings. OTHER: No other significant finding. IMPRESSION: Complex pancreatic pseudocyst. No significant change. TECHNICAL DOCUMENTATION: JOB ID: [id number] Quality ID # 436: Final reports with documentation of one or more dose reduction techniques (e.g., Au tomated exposure control, adjustment of the mA and/or kV according to patient size, use of iterative reconstruction technique) 2010 [employer]- All Rights Reserved Reading location - IP/workstation name: [email or web address]
== END ==
LOC: RAD 09:19
PROVIDERS: ATTEND Internal Medicine Gastroenterology
DX: K86.2 Cyst of pancreas (principal); R10.13 Epigastric pain
CPT/HCPCS: 74160; 82565

== ENCOUNTER → 2020-07-09 | Outpatient (CLI) | payer OTHER ==
--- NOTE | 2020-07-09 09:07 | RADIOLOGY REPORT (SQ) ---
EXAM DESCRIPTION: CT ABD/PELVIS NO ORAL OR IV IMAGES COMPLETED DATE/TIME: 07/09/2020 7:23 am REASON FOR STUDY: LEFT LOWER QUADRANT PAIN R10.32 LEFT LOWER QUADRANT PAIN COMPARISON: 09/01/2019 TECHNIQUE: CT scan of the abdomen and pelvis performed without intravenous or oral contrast. Images reviewed with lung, soft tissue, and bone windows. Reconstructed coronal and sagittal MPR images revi ewed. All images stored on PACS. All CT scanners at this facility use dose modulation, iterative reconstruction, and/or weight based d osing when appropriate to reduce radiation dose to as low as reasonably achievable (ALARA). [facility]: Dose Right [facility]: CareDose [facility]: Dose Right [facility]: Teradose 4D [facility]: [employer] RADIATION DOSE: CT Rad equipment meets quality standard of care and radiation dose reduction techniq ues were employed. CTDIvol: 12.3 mGy. DLP: 749 mGy-cm.mGy. LIMITATIONS: None. FINDINGS: LOWER CHEST: No significant findings. No nodules or infiltrates. NON-CONTRASTED LIVER, SPLEEN, ADRENALS: Evaluation limited by lack of IV contrast. No identified sign ificant masses. Decreased attenuation of the hepatic parenchyma compatible with steatosis. PANCREAS: Interval near complete resolution of previously seen complex pancreatic pseudocyst about th e pancreatic tail. No new definitive peripancreatic stranding. No no fluid collection. Pancreatic duct is non dilated. GALLBLADDER: No identified stones by CT criteria. No inflammatory changes to suggest cholecystitis. RIGHT KIDNEY AND URETER: No suspicious masses. Assessment limited by lack of IV contrast. No renal stones. No hydronephrosis or hydroureter. LEFT KIDNEY AND URETER: No suspicious masses. Assessment limited by lack of IV contrast. No renal s tones. Punctate calcific density within the region of the distal left ureter which is favored to rep resent a pelvic phlebolith. No hydronephrosis or hydroureter. AORTA AND RETROPERITONEUM: No aneurysm. No retroperitoneal masses or adenopathy. BOWEL AND PERITONEAL CAVITY: No evidence of intestinal obstruction. No focal bowel wall thickening. Mild thickening and stranding along the left pericolic gutter, possibly sequelae from prior pancreat itis and similar to prior. APPENDIX: Normal. PELVIS, BLADDER, AND ABDOMINAL WALL:Unremarkable urinary bladder. No pelvic free fluid, adenopathy o r mass. Small fat containing left inguinal hernia. BONES: No acute bony abnormality. No suspicious lytic or blastic osseous lesions. OTHER: No other significant finding. IMPRESSION: 1. Near complete resolution of previously seen complex pancreatic pseudocyst about the pancreatic tail. 2. Hepatic steatosis. 3. Small fat containing left inguinal hernia. COMMENT: Quality ID # 436: Final reports with documentation of one or more dose reduction techniques (e.g., Automated exposure control, adjustment of the mA and/or kV according to patient size, use of iterative reconstruction technique) TECHNICAL DOCUMENTATION: JOB ID: [id number] 2010 [employer]- All Rights Reserved Reading location - IP/workstation name: [email or web address]
== END ==
LOC: RAD 07:13
PROVIDERS: ATTEND Internal Medicine
DX: K40.90 Unilateral inguinal hernia, without obstruction or gangrene, not specified as recurrent (principal); K76.0 Fatty (change of) liver, not elsewhere classified; R10.32 Left lower quadrant pain
CPT/HCPCS: 74176